=== PATIENT | female | born 2000 | race Caucasian/White ===

== ENCOUNTER 2019-03-15 16:13 | Emergency (ER) | payer OTHER ==
[~2019-03-15 16:13] MED LIST: ISOVUE-370 76%-LOCM 1 ML ONE
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
[2019-03-15] MEDS ORDERED: Ketorolac Tromethamine 30 MG/ML VIAL ONE (17:07)
== END 2019-03-15 17:18 | disposition home or self-care (01) ==
LOC: ERS 16:13
DX: S16.1XXA Strain of muscle, fascia and tendon at neck level, initial encounter (principal); R07.89 Other chest pain; M25.512 Pain in left shoulder; M79.662 Pain in left lower leg; F41.9 Anxiety disorder, unspecified; F32.9 Major depressive disorder, single episode, unspecified; V69.9XXA Occupant (driver) (passenger) of heavy transport vehicle injured in unspecified traffic accident, initial encounter
CPT/HCPCS: 71260; 72125; 74177; 96374; G0390; J1885; Q9966